=== PATIENT | female | born 1970 | race Caucasian/White ===

== ENCOUNTER 2017-01-20 14:07 | Emergency (ER) | payer MEDICARE, MEDICAID | END 2017-01-20 14:52 | disposition home or self-care (01) | LOC: ED 14:07 | DX: G44.209 Tension-type headache, unspecified, not intractable (principal); J43.9 Emphysema, unspecified; F17.210 Nicotine dependence, cigarettes, uncomplicated; W22.8XXA Striking against or struck by other objects, initial encounter; Y92.9 Unspecified place or not applicable ==